=== PATIENT | female | born 1975 | race African-American/Black ===

== ENCOUNTER 2017-05-19 07:47 | Inpatient (IN) | payer BC ==
[2017-05-17 14:19] VITALS: BMI 38.7
[~2017-05-19 07:47] MED LIST: BUPIVACAINE HCL/PF 0.5% (5MG/ML) 10 ML VIAL IJ ONE
[2017-05-19] MEDS ORDERED: ceFAZolin SODIUM 1 GM VIAL IVPB ONE (11:38)
[2017-05-19] MEDS ORDERED: ONDANSETRON 4 MG/2 ML VIAL IVPUSH PRN (11:43)
[2017-05-19] MEDS ORDERED: LACTATED RINGERS SOLUTION 1,000 ML IV SCH (11:45)
[2017-05-19] MEDS ORDERED: DESFLURANE GAS 240 ML BOTTLE IH ONE (13:14)
[2017-05-19] MEDS ORDERED: BUPIVACAINE HCL/PF 0.5% (5MG/ML) 10 ML VIAL ONE (13:22)
[2017-05-19] MEDS ORDERED: BUPIVACAINE HCL/PF 0.5% (5MG/ML) 10 ML VIAL IJ ONE (13:45)
[2017-05-19] MEDS ORDERED: HYDROmorphone HCL CARPU-JECT 1 MG/1 ML DISP.SYRIN IVPB PRN (13:58)
--- NOTE | 2017-05-19 14:05 | OP ---
Operative Note - Note: Operative Date: 05/19/17 Pre-Operative Diagnosis: Morbid Obesity. Vomiting. Mechanical Complication of Gastric Band Operation: Laparoscopic Vertical Sleeve Gastrectomy. Removal of Gastric Band plus subcutaneous Port. Laparoscopic Lysis of Adhesions. Excision of Fibrous Capsule around Stomach. Diagnostic Laparoscopy Findings: Large amount of scar tissue between stomach and liver undersurface Fibrous capsule noted around the stomach and over the band Surgeon: Olivier Barriga Textile Bag Sewer: Zi Hadley Anesthesia: General Specimens Removed: Greater curve of stomach. Lap Band plus sub-Q port
[2017-05-19] MEDS: hydrALAZINE HCL 20 MG/ML VIAL ONE ×3 (14:10→14:55)
[2017-05-19] MEDS: METOCLOPRAMIDE HCL INJECTION 10 MG/2 ML VIAL IVPB SCH ×2 (14:15→21:26)
[2017-05-19] MEDS: SODIUM CHLORIDE 1,000 ML IV SCH (14:45)
[2017-05-19 15:00] LABS: MCH 22.6 pg (25.7-33.7); MCHC 30.9 g/dl (32.0-36.0); MEAN CELL VOLUME 73.1 fl (80-96); MEAN PLT VOLUME 8.8 fl (7.5-11.1); PLATELET COUNT 239 K/MM3 (134-434); RDW 15.5 % (11.6-15.6); WHITE BLOOD COUNT 17.9 K/mm3 (4.0-10.0)
--- NOTE | 2017-05-19 15:16 | OP ---
DATE OF OPERATION: 05/19/2017 PREOPERATIVE DIAGNOSIS: 1. Morbid obesity. 2. Intractable vomiting. 3. Mechanical complication of implantable device secondary to gastric band. POSTOPERATIVE DIAGNOSIS: 1. Morbid obesity. 2. Intractable vomiting. 3. Mechanical complication of implantable device secondary to gastric band. 4. Abdominal adhesions. 5. Fibrous capsule around the stomach. PROCEDURE PERFORMED: 1. Laparoscopic vertical sleeve gastrectomy. 2. Removal of gastric band plus subcutaneous port component. 3. Laparoscopic lysis of adhesions. 4. Excision of fibrous capsule around the stomach. 4. Diagnostic laparoscopy. OPERATING SURGEON: Olivier Barriga MD STABLE HAND: Zi Hadley MD ANESTHESIA: General. OPERATIVE PROCEDURE: The patient was brought into the operating room, placed on the OR table in the supine position. All precautions were taken initially including padding for the back and the feet, and Betadine boots were placed on both lower extremities. At that point, the abdomen was prepped and draped in the usual manner. A Veress needle was placed in the left quadrant, and a pneumoperitoneum was established. A No. 12 bladeless trocar was placed in the left upper quadrant. Through that trocar, a laparoscopic camera was placed. Under direct vision, a No. 15 bladeless trocar was placed in the midline in the supraumbilical position followed by a No. 5 bladeless trocar in the right upper quadrant and a No. 5 bladeless trocar below the left costal margin. A Adenike Liver Retractor was then placed in the epigastrium to retract the left lobe of the liver. The left lobe had a lot of adhesions adhered to the stomach, so, it could not be completely lifted up at that time. The patient was then placed in 20-degree reverse Trendelenburg position by Anesthesia. The band tubing was noted entering the band at the undersurface of the liver on the distal stomach. Here, with the operating surgeon retracting the stomach inferiorly, the bankruptcy legal assistant surgeon retracted the band tubing towards the patients right side and used the electrocautery to score the fibrous tissue over the band tubing. This was done very gently in order to avoid any injury to the stomach wall. Once the band tubing was then freed of scar tissue, it was followed to where it was around the band in the upper portion of the stomach. Here, again, the bankruptcy legal assistant surgeon retracted the stomach inferiorly. The operating surgeon pulled the tubing towards the patients right side. This exposed the band, and the fibrous capsule over the band was then dissected off the band. Once the fibrous capsule over the band on the lesser curvature side was freed, the band was now movable, and the band then had the scar tissue over the greater curvature removed. With the band now completely movable, the band was then cut and completely removed from around the stomach and sent off the field as a specimen to Pathology. Attention was now directed to the wrap of the stomach on the greater curve. With the bankruptcy legal assistant surgeon retracting the stomach inferiorly, the operating surgeon used electrocautery to take down the wrap, and then the stomach now was completely free of scar tissue and was back to its normal anatomic position. Attention was now directed to the fibrous capsule around the upper portion of the stomach where the band had been. With both the bankruptcy legal assistant and operating surgeons lifting it up, the operating surgeon placed a scissors underneath it and dissected the fibrous capsule off the stomach wall from inferior to superior. Care was taken that no injury to the underlying stomach wall was noted. At this juncture, Anesthesia then placed a No. 40 bougie. The bougie was able to be easily inserted past the EG junction where the band had been and went all the way down to the antrum. At this point, 6 cm was measured approximately from the pylorus, and here, the operating surgeon lifted up the stomach towards the anterior abdominal wall, the bankruptcy legal assistant surgeon retracted the gastrocolic ligament inferiorly. The LigaSure device was used to dissect the gastrocolic ligament off the greater curve of the stomach. This continued in a superior and vertical direction, dissecting the short gastric vessels until the final short gastric vessel between the superior pole spleen and the proximal fundus was divided. At this junction, with the bougie placed along the lesser curve, a series of michelle were performed, the first two being black-load michelle 6 cm in length along the bougie. This was followed by a series of purple-load michelle that continued until the final staple was fired in the left upper quadrant, and the greater curve was now completely detached from the lesser curve. It should be noted that prior to firing each staple, both the anterior and posterior turcios were check, and they were equal. Then, the area of esophagogastric junction approximately 1 cm serosa remained on both the anterior and posterior turcios. At this juncture, the bougie was removed by Anesthesia, and Dr. Hadley, the bankruptcy legal assistant surgeon, then stepped away from the operative field and performed an upper endoscopy. The details will be described by Dr. Hadley in his operative or procedure note. In summary, the endoscope was placed past the esophagus, past the esophagogastric junction into the distal stomach without any signs of stricture. The staple line appeared to be intact with only some minor old blood noted next to the michelle. Also important, as saline was placed on the outside of the staple line of the stomach, the air that was inserted during the upper endoscopy showed no signs of any air leaks or bubbles, signifying that the michelle were secure, and no injury was noted to the abdominal wall. At this point, the endoscope was removed, and at that point, under direct vision, the No. 15 and No. 12 trocar sites were closed with endo-closure device to prevent internal hernia and to prevent bleeding. Under direct vision, all trocars were removed and pneumoperitoneum was released. The midline No. 15 site was now extended slightly to the left side, and that was where the port was from the band. The scar tissue over the port was dissected off with electrocautery and the port and tubing were sent off the field with the rest of the band. At this point, all trocar sites received 0.25% Marcaine, were closed with 4-0 Biosyn in a subcuticular fashion, except for the No. 15 midline, which was also closed with 3-0 Vicryl in subcutaneous fashion before the 4-0 Vicryl was done in the subcuticular tissue. Dressings were applied. The patient awoke from anesthesia and transferred out of the operating room to the recovery room in stable condition. ANESTHESIA: General. SURGEON: Olivier Barriga MD STABLE HAND: Zi Hadley MD EXPECTED BLOOD LOSS: 30 mL. DISPOSITION: Patient transferred to the recovery room in stable condition.. Benjamin [id number]
[2017-05-19 15:34] LABS: ALBUMIN 3.4 g/dl (3.4-5.0); ANION GAP 7 (8-16); CALCIUM 8.5 mg/dL (8.5-10.1); CO2 24 mmol/L (21-32); GLUCOSE,RANDOM 141 mg/dL (74-106); SGOT/AST 119 U/L (15-37); SGPT/ALT 113 U/L (12-78)
[2017-05-19 15:36] LABS: ALK PHOS 86 U/L (45-117); BILIRUBIN,TOTAL 0.3 mg/dL (0.2-1.0); CREATININE 0.8 mg/dL (0.55-1.02); TOT PROT 6.8 g/dl (6.4-8.2)
[2017-05-19] MEDS: FAMOTIDINE 20 MG/50 ML IVPB 50 ML IVPB SCH (21:25)
[2017-05-19] MEDS: ENOXAPARIN NA (PORCINE) 40 MG/0.4 ML DISP.SYRIN SQ SCH (21:26)
[2017-05-20] MEDS: METOCLOPRAMIDE HCL INJECTION 10 MG/2 ML VIAL IVPB SCH ×3 (02:42→13:33)
[2017-05-20 07:54] LABS: MCH 22.2 pg (25.7-33.7); MCHC 30.9 g/dl (32.0-36.0); MEAN CELL VOLUME 71.9 fl (80-96); MEAN PLT VOLUME 8.9 fl (7.5-11.1); PLATELET COUNT 215 K/MM3 (134-434); RDW 15.6 % (11.6-15.6)
[2017-05-20 08:27] LABS: ALBUMIN 2.9 g/dl (3.4-5.0); ANION GAP 11 (8-16); CO2 22 mmol/L (21-32); GLUCOSE,RANDOM 107 mg/dL (74-106)
[2017-05-20 08:30] LABS: ALK PHOS 71 U/L (45-117); BILIRUBIN,TOTAL 0.6 mg/dL (0.2-1.0); CREATININE 0.5 mg/dL (0.55-1.02); SGOT/AST 63 U/L (15-37); SGPT/ALT 79 U/L (12-78); TOT PROT 5.9 g/dl (6.4-8.2)
[2017-05-20] MEDS: FAMOTIDINE 20 MG/50 ML IVPB 50 ML IVPB SCH (09:20)
[2017-05-20] MEDS: ENOXAPARIN NA (PORCINE) 40 MG/0.4 ML DISP.SYRIN SQ SCH (09:25)
--- NOTE | 2017-05-20 11:19 | PN ---
Progress Note (short form) - Note Progress Note: Post op day#1.S/P Laproscopic gastric hayes placement under GA uneventful.Patient stable.No any anesthesia related.Problem.Patient DC from the anesthesia care.
[2017-05-20] MEDS: SODIUM CHLORIDE 1,000 ML IV SCH (13:11)
--- NOTE | 2017-05-20 17:09 | PN ---
Progress Note (short form) - Note Progress Note: POD#1 Afebrile, VSS P-60-75 BP_139/75 Pt doing well No N/V Kristin PO clear liquids- 2 oz po tid P/E-Abd- trocar sites clean, dry UGI- no leak, no obstruction WBC-12.0 H/H-11/35.5 P- D/C pt home Advance to PO clear liquids- 3oz po 4-5 times per day F/U with Dr Barriga on 05/26/17
[2017-05-20 18:09] VITALS: BP 147/87; PULSE 67; TEMP 98.1
--- NOTE | 2017-05-23 16:42 | PATH ---
Surgical Pathology Report Patient Name: PATEL BANERJEE [facility]. Rec. #: [id number] /Age/Gender: 1975 (Age: 41) / F Account: [id number] Location: 4 W TELEMETRY U Taken: 05/19/2017 Received: 05/20/2017 Reported: 05/23/2017 Physicians: Olivier Barriga M.D. Specimen(s) Received A: GASTRIC PORT BAND 3 COMPONENTS B: GREATER CURVATURE OF THE STOMACH Clinical History Morbid obesity Final Diagnosis A. GASTRIC PORT, BAND AND COMPONENTS, REMOVAL: GETTER OPERATOR (GROSS EXAM). B. STOMACH, GREATER CURVATURE, LAPAROSCOPIC VERTICAL SLEEVE GASTRECTOMY: PORTION OF STOMACH WITH PATCHY MILD CHRONIC GASTRITIS. IMMUNOSTAIN FOR H. PYLORI IS NEGATIVE FOR ORGANISMS. Electronically Signed Sandeep Ramirez M.D. Gross Description A. Received fresh labeled "gastric port, band and components" is a 4 cm in diameter focally disrupted gastric band. The band displays a 27 cm in length portion of tubing extending from one aspect. There is a 3.0 x 1.5 cm white, circular device, consistent with a port also received within the same container. The port displays a 12 cm in length portion of tubing extending from one aspect. There is an additional portion of tubing received within the same container, measuring 19.5 cm in length. No soft tissue is present. No sections are submitted, gross only. B. Received in formalin, labeled "greater curvature of the stomach" is a 93 gram, 19.0 x 3.5 x 3.3 cm. portion of stomach with a stapled margin of resection. The serosa is larios-bowman with minimal attached fat. The mucosa is larios-pink with normal folds. No mucosal masses are identified. Industrial Maintenance Mechanic sections are submitted in one cassette. DL/05/20/2017 saudi05/20/2017
== END 2017-05-20 18:39 | disposition home or self-care (01) | DRG 620 ==
LOC: JSAMEDAYSX 07:47 → EDSTATUS 11:30 → J4W 16:26
PROVIDERS: ADMIT Surgery; ATTEND Surgery
PROC: 0DP64CZ Removal of Extraluminal Device from Stomach, Percutaneous Endoscopic Approach (ICD-10-PCS; 2017-05-19)
PROC: 0WJP4ZZ Inspection of Gastrointestinal Tract, Percutaneous Endoscopic Approach (ICD-10-PCS; 2017-05-19)
PROC: 0DNW4ZZ Release Peritoneum, Percutaneous Endoscopic Approach (ICD-10-PCS; 2017-05-19)
PROC: 0DB64Z3 Excision of Stomach, Percutaneous Endoscopic Approach, Vertical (ICD-10-PCS; principal; 2017-05-19 09:30)
DX: E66.01 Morbid (severe) obesity due to excess calories (principal); T85.598A Other mechanical complication of other gastrointestinal prosthetic devices, implants and grafts, initial encounter; Z68.41 Body mass index [BMI] 40.0-44.9, adult; Z71.3 Dietary counseling and surveillance; R11.10 Vomiting, unspecified; Y92.89 Other specified places as the place of occurrence of the external cause; K66.0 Peritoneal adhesions (postprocedural) (postinfection)
CPT/HCPCS: 36415; 74241-TC; 80053; 84703; 85027; 86850; 86900; 86901; 88300-TC; 88305-TC; 94010; 94760